=== PATIENT | female | born 1980 | race African-American/Black ===

== ENCOUNTER → 2017-04-18 | Outpatient (CLI) | payer OTHER ==
[2016-01-06 13:29] VITALS: BP 110/62
[~2017-04-18] VITALS: Ht 167.6 cm; Wt 68.0 kg
[~2017-04-18] MED LIST: ESCI10TA PO; MULT-240 PO; PANT40TA5 PO; SINCALIDE 1.4 MCG in IV NORMAL SALINE 50ML 30 ML IV ONE
--- NOTE | 2017-04-18 14:53 | RAD ---
Indication abdominal pain for 2 months. Hepatobiliary scan was performed. 5 mCi of technetium labeled Choletec was administered. 1.4 mcg of CCK was diluted in saline and administered over several minutes. Following the CCK administration a gallbladder ejection fraction calculation was made. There is normal uptake of the radiopharmaceutical in the liver. Activity is seen early in the biliary system, gallbladder and small bowel. Following the Kinevac administration the estimated gallbladder ejection fraction is approximately 80%. IMPRESSION: Normal study
== END | disposition home or self-care (01) ==
LOC: US 09:50
PROVIDERS: ATTEND Internal Medicine Gastroenterology
DX: R10.9 Unspecified abdominal pain (principal); R10.13 Epigastric pain
CPT/HCPCS: 76700; 78226; 96374; A9537; J2805

== ENCOUNTER 2017-11-09 12:40 | Emergency (ER) | payer OTHER ==
[~2017-11-09] VITALS: Ht 167.6 cm; Wt 77.1 kg
[~2017-11-09 12:40] MED LIST changes: -ESCI10TA PO; +ESCITALOPRAM OX10 MG PO; -SINCALIDE 1.4 MCG in IV NORMAL SALINE 50ML 30 ML IV ONE
[2017-11-09 12:57] VITALS: BP 129/71
--- NOTE | 2017-11-09 13:10 | PHYS DOC ---
Past Medical History Past Medical History: No Pertinent History Past Surgical History: Tubal ligation Alcohol Use: None Drug Use: None Adult General Chief Complaint Chief Complaint: DENTAL PROBLEM HPI HPI Patient is a 36 year old female presents to the emergency department with concerns of swelling to the left cheek after a biopsy yesterday. She reports that she is currently taking prednisone. She spoke with her oral surgeon today but has continued concerns with came to the emergency department. She has no difficulty with swallowing or phonation. No fever. Patient reports that she has had a several month history of fluid filled lesions in her mouth that, dull and never last more than a day. She states this is a reason for the biopsy. Review of Systems Review of Systems Constitutional: Denies fever or chills [] Eyes: Denies change in visual acuity, redness, or eye pain [] HENT: Denies nasal congestion or sore throat , oral swelling[] Respiratory: Denies cough or shortness of breath [] Cardiovascular: No additional information not addressed in HPI [] GI: Denies abdominal pain, nausea, vomiting, bloody stools or diarrhea [] : Denies dysuria or hematuria [] Musculoskeletal: Denies back pain or joint pain [] Integument: Denies rash or skin lesions [] Neurologic: Denies headache, focal weakness or sensory changes [] Endocrine: Denies polyuria or polydipsia [] All other systems were reviewed and found to be within normal limits, except as documented in this note. Allergies Allergies Allergies Coded Allergies Type Severity Reaction Last Updated Verified No Known Drug Allergies 02/09/14 No Physical Exam Physical Exam Constitutional: Well developed, well nourished, no acute distress, non-toxic appearance. [] HENT: Normocephalic, atraumatic, bilateral external ears normal, oropharynx moist, left buccal mucosa with incision, 2 sutures. No surrounding erythema, no induration. No oral exudates, nose normal. Mild swelling to the left cheek, no erythema, nontender [] Eyes: PERRLA, EOMI, conjunctiva normal, no discharge. [] Neck: Normal range of motion, no tenderness, supple without lymphadenopathy, no stridor. [] Cardiovascular:Heart rate regular rhythm, no murmur [] Lungs & Thorax: Bilateral breath sounds clear to auscultation [] Current Patient Data Vital Signs Vital Signs Date Time Temp Pulse Resp B/P (MAP) Pulse Ox O2 Delivery O2 Flow Rate FiO2 11/09/17 12:57 98.3 82 20 97 Room Air 98.3 EKG EKG [] Radiology/Procedures Radiology/Procedures [] Course & Med Decision Making Course & Med Decision Making Pertinent Labs and Imaging studies reviewed. (See chart for details) [] Dragon Disclaimer Dragon Disclaimer This electronic medical record was generated, in whole or in part, using a voice recognition dictation system. Departure Departure Impression: Primary Impression: Post-operative complication Disposition: 01 HOME, SELF-CARE Condition: STABLE Referrals: FREDA PEDRO MD (PCP) Patient Instructions: Heat Therapy Additional Instructions: Continue medications as previously prescribed by your provider. Problem Qualifiers Primary Impression: Post-operative complication Surgical complication system/body Area: subcutaneous tissue Surgical complication type: other Qualified Codes: L76.82 - Other postprocedural complications of skin and subcutaneous tissue СЕРГЕЙ EVANS APRN Nov 09, 2017 13:10
== END 2017-11-09 13:15 | disposition home or self-care (01) ==
LOC: ER 12:40
DX: L76.82 Other postprocedural complications of skin and subcutaneous tissue (principal)
CPT/HCPCS: 99281

== ENCOUNTER → 2018-12-28 | Outpatient (CLI) | payer OTHER ==
--- NOTE | 2018-12-28 16:04 | RAD ---
DATE: 12/28/2018 EXAM: MAMMO MARIYA CAT LOONEYAT, BREAST BILATERAL HISTORY: Left breast lump at the 6:00 region COMPARISON: None. This exam is the baseline. This study was interpreted with the benefit of Computerized Aided Detection (CAD). Breast Density: HETERO The breast parenchyma is heterogenously dense, which could reduce sensitivity of mammography. Breast parenchyma level C. FINDINGS: MLO and CC images were obtained. Spot compression imaging of the left upper MLO projection was performed. CAD utilized. Tomosynthesis was performed. At the right upper-outer breast posteriorly, there is a lobulated structure which has the appearance of a lymph node. No suspicious calcification grouping, distortion, or other masses. Benign calcifications are present. Asymmetry identified the upper left MLO view does not persist on spot compression imaging. Ultrasound of the right upper-outer breast 11:00 region 7 cm from the nipple demonstrates a 1.2 cm x 0.6 cm x 0.8 cm lobulated structure with hyperechoic center that has the expected contour of a lymph node. Limited ultrasound imaging of the left breast from the 4:00 to 6:00 region 4 cm from the nipple at the reported site of a palpable abnormality does not demonstrate a mass, cysts, or other finding. Upon physical exam by myself, no palpable abnormality is identified. IMPRESSION: No imaging abnormality involving the left lower breast at the site of reported palpable abnormality. Clinical management is recommended in determining the for biopsy. Right upper outer lymph node is present. BI-RADS CATEGORY: 2 BENIGN FINDING(S) RECOMMENDED FOLLOW-UP: CLIN FOLLOW UP IMAGING CLINICALLY INDICATED PQRS compliance statement: Patient information was entered into a reminder system with a target due date at the age of 40 years unless clinically indicated sooner for the next mammogram. Mammography is a sensitive method for finding small breast cancers, but it does not detect them all and is not a substitute for careful clinical examination. A negative mammogram does not negate a clinically suspicious finding and should not result in delay in biopsying a clinically suspicious abnormality. "Our facility is accredited by the [employer] Mammography Program."
== END | disposition home or self-care (01) ==
LOC: MAMMO 12:57
PROVIDERS: ATTEND Family Medicine
DX: R92.8 Other abnormal and inconclusive findings on diagnostic imaging of breast (principal)
CPT/HCPCS: 76641; 77066; G0279; 77062

== ENCOUNTER → 2021-02-01 | Outpatient (CLI) | payer OTHER ==
[~2021-02-01] MED LIST changes: -PANT40TA5 PO; +PANT40TA77 PO
--- NOTE | 2021-02-01 16:18 | RAD ---
3 views lumbar spine 02/01/2021 INDICATION: Low back pain COMPARISON STUDY: None FINDINGS: No evidence of acute fracture or alignment abnormality is identified. Vertebral body height s and disc spaces are preserved. No evidence of spondylolysis or spondylolisthesis is seen. Facet barbara nts appear normal. No acute soft tissue changes are identified. IMPRESSION: Normal radiographic appearance of the lumbar spine Electronically signed by: Apollo Nielsen MD (02/01/2021 4:15 PM) [id number]
== END ==
LOC: RAD 13:29
PROVIDERS: ATTEND Family Medicine
DX: M54.5 Low back pain (principal)
CPT/HCPCS: 72100

== ENCOUNTER → 2021-04-22 | Outpatient (CLI) | payer OTHER ==
--- NOTE | 2021-04-22 10:47 | KCIC ---
MR LUMBAR SPINE [id number] History: Right-sided low back pain a couple of months, no injury, denies radiculopathy. Technique: Multiplanar, multi sequential MR imaging was performed of the lumbar spine without IV cont rast. Comparison: None Findings: Normal vertebral body height and alignment. No fracture. Conus terminates at the normal location. No evidence of nerve root clumping. L1-L2: No canal or neuroforaminal narrowing. L2-L3: No canal or neuroforaminal narrowing. L3-L4: Disc dehydration with mild diffuse bulge and anterior annular fissure. No canal stenosis or s ignificant neuroforaminal narrowing. L4-L5: Mild diffuse disc bulge. No significant canal stenosis or neuroforaminal narrowing. L5-S1: Disc dehydration with mild diffuse bulge and mild bilateral facet arthropathy. No significant canal stenosis or neuroforaminal narrowing. Impression: Mild degenerative changes at L3-4, L4-5 and L5-S1, without significant neuroforaminal narrowing or ca nal stenosis. Electronically signed by: Bakari Amin MD (04/22/2021 10:45 AM) [id number]
== END ==
LOC: KCIC MRI 08:34
PROVIDERS: ATTEND Family Medicine
DX: M47.817 Spondylosis without myelopathy or radiculopathy, lumbosacral region (principal)
CPT/HCPCS: 72148